=== PATIENT | male | born 1955 | race Caucasian/White ===

== ENCOUNTER 2018-01-25 08:51 | Emergency (ER) | payer OTHER ==
[~2018-01-25] VITALS: Ht 172.7 cm; Wt 74.8 kg
[~2018-01-25 08:51] MED LIST: ASPIR 8181 MG PO; CARVEDILOL12.5 MG PO; LISINOPRIL10 MG PO; PLAVIX 75 MG TA75 M1 PO; ZOCOR40 MG PO
[2018-01-25 09:39] LABS: ABSOLUTE NEUTROPHILS 4.5 thou/uL (1.4-8.2); BASOPHILS 0.5 % (0.0-2.0); EOSINOPHILS 3.3 % (0.0-3.0); HEMATOCRIT 43.7 % (42.0-52.0); HEMOGLOBIN 15.1 gm/dL (14.0-18.0); LYMPHOCYTES 20.3 % (24.0-44.0); MCH 34.4 pg (26.0-34.0); MCHC 34.5 g/dL (28.0-37.0); MCV 99.6 fL (80.0-100.0); PLATELET COUNT 136 thou/uL (150-400); POLYS 67.9 % (36.0-66.0); RBC 4.39 mil/uL (4.50-6.00); RDW 12.3 % (10.5-14.5); WBC 6.7 thou/uL (4.0-11.0)
[2018-01-25 10:15] LABS: CALCIUM 8.9 mg/dL (8.5-10.1); CREATININE 1.2 mg/dL (0.7-1.3); POTASSIUM 4.2 mmol/L (3.5-5.1)
[2018-01-25 11:53] VITALS: BP 112/65
== END 2018-01-25 11:54 | disposition home or self-care (01) ==
LOC: ER 08:51
PROVIDERS: Emergency Medicine
DX: R51 Headache (principal); H92.03 Otalgia, bilateral; I25.2 Old myocardial infarction